=== PATIENT | male | born 1985 | race Caucasian/White ===

== ENCOUNTER 2017-03-28 17:27 | Emergency (ER) | payer SELFPAY ==
[~2017-03-28] VITALS: Ht 180.3 cm; Wt 79.4 kg
[2017-03-28 17:35] VITALS: BP 129/76
[2017-03-28] MEDS ORDERED: CLIN300C8 PO (17:49)
[2017-03-28] MEDS ORDERED: HYDR-971 PO (17:49)
--- NOTE | 2017-03-28 17:51 | PHYS DOC ---
General Chief Complaint: DENTAL PROBLEM Stated Complaint: DENTAL PAIN Time Seen by MD: 17:43 Source: patient Exam Limitations: no limitations Problems: History of Present Illness Initial Comments Pt is 32/M to ED c/o severe dental pain. Pt recently had L lower molar extraction. States R upper has been cracked for "awhile" however pain/swell increased past three days 9/10 throb currently OTC not helping. Called DDS, can't get in til next week. No fever/chills/ diaphoresis/CALL/neck stiff/dysphagia/dyspnea. Still smokes cigs. Timing/Duration: gradual, last week Severity: severe Location: dental Prearrival Treatment: over the counter meds Modifying Factors: improves with other Associated Symptoms: tooth pain Allergies: Coded Allergies: No Known Drug Allergies (Unverified , 03/28/17) Past Medical History Medical History: no pertinent history Surgical History: no surgical history Social History Smoker: cigarettes Alcohol: none Drugs: none Constitutional: denies chills, denies diaphoresis, denies fever, denies malaise Eyes: denies blindness, denies blurred vision, denies pain, denies photophobia Ears: denies dizziness, denies pain, denies tinnitus Nose: denies congestion, denies epistaxis Mouth: see HPI, denies purulent discharge Throat: denies pain, denies swelling, denies neck stiffness, denies hoarse, denies painful swallowing, denies difficulty with fluids Respiratory: denies cough, denies shortness of breath Cardiovascular: denies chest pain, denies palpitations Gastrointestinal: denies nausea, denies vomiting Musculoskeletal: denies back pain, denies joint swelling, denies neck pain Neurological: denies headache, denies numbness, denies paresthesia Physical Exam General Appearance: no apparent distress Eyes: bilateral eye normal inspection, bilateral eye PERRL, bilateral eye EOMI Nose: normal inspection Mouth/Throat: other (global caries with missing teeth, R premolar caries w/ gingival swelling no purulence no bony TTP, airway patent) Neck: full range of motion, supple, trachea midline Cardiovascular/Respiratory: normal peripheral pulses, normal breath sounds, no respiratory distress 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 Discussed need to f/u DDS. Discussed OTC/Rx meds , s/s to monitor and urgent indications to return. No emergent condition currently, pt questions answered he expressed agreement/understanding with treatment plan. 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 Departure Time of Disposition: 17:50 Disposition: 01 HOME, SELF-CARE Diagnosis: dental caries, tobaccoism Condition: STABLE Patient Instructions: Dental Caries, Smoking Cessation, Tips For Success Additional Instructions: Stop smoking seek medical assistance if necessary. Listerine gargles 3 times daily after brushing and flossing. Aggressive hydration to prevent dehydration. Prescription: Clindamycin, [place] 5 mg quantity 20 Take medications with food. Call and schedule appointment with your dentist first thing Friday morning. Return to ED with new or changing symptoms. BAKARI MATIAS DO Mar 28, 2017 17:51
[2017-03-28] MEDS ORDERED: oxyCODONE/APAP 7.5/325 1 TAB TABLET PO ONE (18:15)
[2017-03-28] MEDS ORDERED: CLINDAMYCIN HCL 150 MG CAPSULE PO ONE (18:15)
== END 2017-03-28 18:02 | disposition home or self-care (01) ==
LOC: ER 17:27
DX: K02.9 Dental caries, unspecified (principal); F17.210 Nicotine dependence, cigarettes, uncomplicated
CPT/HCPCS: 99283